=== PATIENT | female | born 1975 | race Caucasian/White ===

== ENCOUNTER 2017-01-03 09:06 | Day surgery (SDC) | payer BC ==
[~2017-01-03 09:06] MED LIST: CEFAZOLIN SODIUM 2 GRAM PREMIX 100 ML IV ONE; CEFAZOLIN SODIUM 2 GRAM PREMIX 100 ML IV PRN; IV START KIT ONE; LACTATED RINGERS 1,000 ML ONE
[2017-01-03] MEDS ORDERED: FENTANYL 100 MCG/2 ML VIAL ONE ×2 (09:32→10:04)
[2017-01-03] MEDS ORDERED: PROPOFOL 20 ML IV ONE (09:32)
[2017-01-03] MEDS ORDERED: MIDAZOLAM HCL 1 MG/ML 2ML VIAL ONE (09:32)
[2017-01-03] MEDS ORDERED: IOPAMIDOL 300 (61%) 30 ML SDV ONE (09:37)
[2017-01-03] MEDS ORDERED: SODIUM CHLORIDE 0.9% FLUSH 0 ML ONE (09:37)
[2017-01-03] MEDS ORDERED: BUPIVACAINE 0.5% W/EPI SDV 30 ML VIAL ONE ×2 (09:37→09:49)
[2017-01-03] MEDS ORDERED: SODIUM CHLORIDE 0.9% 50 ML ONE (09:37)
[2017-01-03] MEDS ORDERED: CEFAZOLIN SODIUM 1 GRAM PREMIX 50 ML IV ONE (09:39)
[2017-01-03] MEDS ORDERED: PROMETHAZINE HCL 25 MG/ML VIAL IM PRN (09:43)
[2017-01-03] MEDS ORDERED: ONDANSETRON 4 MG/2ML 2 ML VIAL IV PRN ×2 (09:43→11:37)
[2017-01-03] MEDS ORDERED: FENTANYL 100 MCG/2 ML VIAL IV PRN (09:43)
[2017-01-03] MEDS ORDERED: CEFAZOLIN SODIUM 1,000 MG VIAL ONE (09:43)
[2017-01-03] MEDS ORDERED: LABETALOL HCL 5 MG/ML 20ML VIAL IV PRN (09:43)
[2017-01-03] MEDS ORDERED: MEPERIDINE 25 MG/ML SYRINGE IV PRN (09:43)
[2017-01-03] MEDS ORDERED: ATROPINE SULFATE 0.4 MG/1 ML VIAL IV PRN (09:43)
[2017-01-03] MEDS ORDERED: HYDROMORPHONE HCL 1 MG/ML SYRINGE IV PRN (09:43)
[2017-01-03] MEDS ORDERED: HYDRALAZINE HCL 20 MG/1 ML VIAL IV PRN (09:43)
[2017-01-03] MEDS ORDERED: NALOXONE HCL 0.4 MG/ML VIAL IV PRN (09:43)
[2017-01-03] MEDS ORDERED: LACTATED RINGERS 1,000 ML IV SCH (09:45)
[2017-01-03] MEDS ORDERED: ONDANSETRON 4 MG/2ML 2 ML VIAL ONE (09:52)
[2017-01-03] MEDS ORDERED: DEXAMETHASONE SOD PHOS 4 MG/1 ML VIAL ONE (09:52)
[2017-01-03] MEDS ORDERED: EPHEDRINE SULFATE UD SYR 25 MG 25 MG/5 ML SYRINGE IV ONE (10:11)
[2017-01-03] MEDS ORDERED: NEOSTIGMINE METHYLSULFATE 1 MG/ML DOSE ONE (10:52)
[2017-01-03] MEDS ORDERED: GLYCOPYRROLATE 0.2 MG/ML 1ML VIAL ONE (10:52)
[2017-01-03] MEDS ORDERED: KETOROLAC TROMETHAMINE 30 MG/ML 1 ML VIAL ONE (10:54)
[2017-01-03] MEDS ORDERED: PROMETHAZINE HCL 25 MG/ML VIAL ONE (11:14)
--- NOTE | 2017-01-03 11:18 | RAD ---
CHOLANGIOGRAM-OPERATIVE HISTORY: Cholecystectomy. COMPARISONS: None. FINDINGS: For intraoperative fluoroscopic images were submitted for review following cholecystectomy with injection of the cystic duct stump. The visualized portions of the intra and extrahepatic biliary tree appear to be appropriate with no filling defects identified. There is flow of contrast into the duodenal C-sweep. A total of 10.8 seconds of fluoroscopy was utilized for the examination. IMPRESSION: 1. Intraoperative fluoroscopy following cholecystectomy with no retained filling defects observed and flow of contrast noted into the duodenal C-sweep.
[2017-01-03] MEDS ORDERED: MORPHINE SULFATE 2 MG/ML SYRINGE IV PRN (11:37)
[2017-01-03] MEDS ORDERED: OXYCODONE HCL 5 MG TABLET PO PRN (11:37)
[2017-01-03] MEDS ORDERED: KETOROLAC TROMETHAMINE 30 MG/ML 1 ML VIAL IV PRN (11:37)
[2017-01-03] MEDS ORDERED: OXYCODONE HCL 5 MG TABLET ONE (12:35)
--- NOTE | 2017-01-03 12:52 | OP ---
Kristie Byrne [id number] DATE OF SURGERY: 01/03/2017 PREOPERATIVE DIAGNOSIS: Chronic cholecystitis. POSTOPERATIVE DIAGNOSIS: Chronic cholecystitis. PROCEDURE: Laparoscopic cholecystectomy with intraoperative cholangiogram. SURGEON: Gaston Fajardo M.D. MAJOR ACCOUNT MANAGER: Mehnaz. ANESTHESIA: Wilkins, General endotracheal. INDICATIONS: This is a 41-year-old female who had symptoms of chronic biliary colic. She had an ultrasound that showed no stones. She did have fatty infiltration of the liver. The common bile duct was normal. A HIDA scan had a diminished ejection fraction consistent with chronic cholecystitis. DESCRIPTION: With informed consent she was taken to the operating room where she was laid supine on the operating room table. General endotracheal anesthetic was administered. The abdomen was prepped and draped in the usual fashion. Local anesthetic was administered below the umbilicus. Incision was made. The fascia was grasped with Venancio clamps and divided with curvilinear scissors. Suture of Surgilon replacing the fascial edges and a balloon Hill port was placed and a pneumoperitoneum was created. Local anesthetic was administered. In the mid epigastrium and along the right lateral abdominal wall incisions were made. Five millimeter ports were placed. The fundus of the gallbladder was grasped and retracted cephalad. There was fatty infiltration of the liver extending around the gallbladder on both sides. When the fundus was retracted laterally it was still close to the liver itself. I was able to dissect this free. Eventually we identified the cystic duct and dissected it free circumferentially. A critical view was obtained. A clip was placed near the infundibulum. The duct was partially transected. A cholangiogram catheter was placed through an angiocath in the abdominal wall. This was placed into the cystic duct and clipped in place. A cholangiogram was obtained showing flow of contrast into the duodenum without filling defect. Contrast was seen refluxing up into the hepatic ducts. The catheter was removed, two clips were placed on the cystic duct stump, and it was completely transected. Next, the cystic artery was identified and dissected free. Three clips were placed and it was transected leaving two clips on the stump. The gallbladder was then taken of the liver bed using electrocautery. When it was placed within an Endocatch bag and removed through the infraumbilical port site. The right upper quadrant was irrigated. Hemostasis was ensured. The ports were removed and the pneumoperitoneum was evacuated. The infraumbilical fascial defect was closed with figure of eight suture of 0 Surgilon. The other fascia defects were small. The skin was closed with subcuticular 4-0 Monocryl. Mastisol and Steri-Strips were placed. Sterile dressings were applied. She tolerated the procedure and was taken to the recovery room in stable condition. Note was made that needle, instrument, and lap counts were reported as correct at the time of closer. JOB: [id number] CC: Dr. Estella Hendricks
--- NOTE | 2017-01-05 09:56 | SURGPATH ---
[facility] [address] [place] [id number] Patient Name: LIA BLANCHARD MR#: [id number] : 1975 Gender: F Specimen #: [id number] Collected: 01/03/2017 Received: 01/04/2017 Reported: 01/05/2017 Submitting Phys: JOHAN CARTAGENA Copy To Phys: KELVIN ENCISO [facility] Clinical History / Pre-Operative Diagnosis: CHRONIC CHOLECYSTITIS Specimen Source / Surgical Procedure Performed: GALLBLADDER Interpretation: GALLBLADDER, CHOLECYSTECTOMY: - CHRONIC CHOLECYSTITIS Electronically Signed Out Frederick Ding M.D. Gross Description: The specimen is received in a formalin filled container labeled with the patient's name and "gallbladder". An intact and engorged gallbladder is 9.3 x 3.3 cm. The serosa is smooth and martins. The wall averages 0.2 cm. The mucosa is pacheco and velvety. There is no nodule or induration. The lumen contains watery green bile. There are no stones. Animal Pathologist in one cassette. Marty Haynes PKristofer Microscopic Description: Microscopic performed. 1: 96461 K81.1
== END 2017-01-03 13:05 | disposition home or self-care (01) ==
LOC: SDC 09:06
PROVIDERS: ATTEND Surgery
PROC: 0FT44ZZ Resection of Gallbladder, Percutaneous Endoscopic Approach (ICD-10-PCS; principal; 2017-01-03)
PROC: BF141ZZ Fluoroscopy of Gallbladder, Bile Ducts and Pancreatic Ducts using Low Osmolar Contrast (ICD-10-PCS; 2017-01-03)
DX: K81.1 Chronic cholecystitis (principal); F32.9 Major depressive disorder, single episode, unspecified; I10 Essential (primary) hypertension; Z85.3 Personal history of malignant neoplasm of breast; E89.0 Postprocedural hypothyroidism; E28.2 Polycystic ovarian syndrome
CPT/HCPCS: 74300; 47563; J0690 ×2; J3010 ×2; J1100; A9270; J2550; J1885; J2250; J2405; J7120; Q9967